=== PATIENT | male | born 1950 | race Hispanic/Latino ===

== ENCOUNTER 2021-07-06 11:39 | Emergency (ER) | payer OTHER ==
[~2021-07-06] VITALS: Ht 167.6 cm; Wt 95.3 kg
[2021-07-06] MEDS ORDERED: TETANUS/DIPHTHERIA TOXOID [ADULT] 0.5 ML VIAL IM ONE ×2 (12:30→13:19)
[2021-07-06] MEDS ORDERED: L.E.T. GEL 3ML SYG TP ONE (12:30)
[2021-07-06 13:27] VITALS: BP 126/76
== END 2021-07-06 13:34 | disposition home or self-care (01) ==
LOC: EDH 11:39
DX: S91.311A Laceration without foreign body, right foot, initial encounter (principal); I10 Essential (primary) hypertension; E78.00 Pure hypercholesterolemia, unspecified; Z79.82 Long term (current) use of aspirin; W20.8XXA Other cause of strike by thrown, projected or falling object, initial encounter
CPT/HCPCS: 12001; 90471; 90714